=== PATIENT | male | born 1965 | race Caucasian/White ===

== ENCOUNTER 2019-11-12 21:56 | Emergency (ER) | payer SELFPAY ==
[~2019-11-12] VITALS: Ht 165.1 cm; Wt 65.5 kg
[2019-11-12 22:52] VITALS: Ht 165.1 cm; Wt 65.5 kg
[2019-11-13 02:30] VITALS: BP 133/74
== END 2019-11-13 02:30 | disposition home or self-care (01) ==
LOC: ED 21:56
DX: S20.211A Contusion of right front wall of thorax, initial encounter (principal); R10.11 Right upper quadrant pain; W19.XXXA Unspecified fall, initial encounter; Y93.89 Activity, other specified; Y92.89 Other specified places as the place of occurrence of the external cause; Y99.8 Other external cause status

== ENCOUNTER 2020-02-03 21:51 | Emergency (ER) | payer MEDICAID ==
[~2020-02-03] VITALS: Ht 165.1 cm; Wt 63.0 kg
[2020-02-03 21:58] VITALS: Ht 165.1 cm; Wt 63.0 kg
[2020-02-04 01:59] VITALS: BP 122/74
== END 2020-02-04 01:59 | disposition home or self-care (01) ==
LOC: ED 21:51
DX: S05.02XA Injury of conjunctiva and corneal abrasion without foreign body, left eye, initial encounter (principal); X58.XXXA Exposure to other specified factors, initial encounter; Y93.89 Activity, other specified; Y92.89 Other specified places as the place of occurrence of the external cause; Y99.8 Other external cause status